=== PATIENT | female | born 1975 | race Two or more races ===

== ENCOUNTER 2023-05-30 10:42 | Emergency (ER) | payer MEDICAID ==
[~2023-05-30] VITALS: Ht 160 cm; Wt 78.5 kg
[~2023-05-30 10:42] MED LIST: CEPH500C PO
[2023-05-30] MEDS ORDERED: ONDANSETRON ODT 4 MG TAB PO ONE (11:00)
[2023-05-30 11:08] LABS: Basophils # (auto) 0.1 10 ^3/uL (0-0.2); Basophils % (auto) 0.7 % (0.0-2.0); Eosinophils # (auto) 0.1 10 ^3/uL (0-0.8); Eosinophils % (auto) 1.4 % (0.0-7.0); Hematocrit 42.1 % (36.0-46.0); Hemoglobin 14.4 g/dL (12.2-16.2); Lymphocytes # (auto) 3.1 10 ^3/uL (0.4-5.4); Lymphocytes % (auto) 41.3 % (10.0-50.0); Mean Corpuscular Hemoglobin 31.5 pg (28.0-32.0); Mean Corpuscular Hgb Conc. 34.2 g/dL (32.0-36.0); Monocytes # (auto) 0.5 10 ^3/uL (0-1.3); Monocytes % (auto) 7.2 % (0.0-12.0); Neutrophils # (auto) 3.7 10 ^3/uL (1.6-8.6); Neutrophils % (auto) 49.4 % (37.0-80.0); Red Blood Cells 4.57 10^6/uL (4.0-5.20); Red Cell Distribution Width 13.4 % (11.8-14.3); White Blood Cell 7.5 10^3/uL (4.4-10.8)
[2023-05-30 11:20] LABS: Alanine Aminotransferase 21 U/L (7-40); Alkaline Phosphatase 38 U/L (46-116); Anion Gap 6 (5-15); Aspartate Aminotransferase 16 U/L (13-40); BUN/Creatinine Ratio 14.8 (10.0-20.0); Blood Urea Nitrogen 9 mg/dL (9-23); Calcium 8.5 mg/dL (8.7-10.4); Carbon Dioxide 26 mmol/L (20-30); Chloride 106 mmol/L (98-107); Glucose 95 mg/dL (74-106); Potassium 3.4 mmol/L (3.5-5.1); Sodium 138 mmol/L (136-145)
[2023-05-30 11:21] LABS: Albumin 4.3 g/dL (3.2-4.8); Bilirubin, Total 0.4 mg/dL (0.2-1.0); Total Protein 7.3 g/dL (5.7-8.2)
[2023-05-30 11:25] LABS: INR 0.99 (0.9-1.15); Partial Thromboplastin Time 28.1 SEC (24.5-34.5); Prothrombin Time 10.4 sec (9.3-11.8)
[2023-05-30 13:01] LABS: Urine Bacteria FEW /hpf (None Seen); Urine Blood Negative /uL (Negative); Urine Clarity Clear (Clear); Urine Color Yellow (Yellow); Urine Protein, UAD Negative (Negative); Urine Specific Gravity 1.014 (1.001-1.035); Urine Urobilinogen Normal (Negative); Urine WBC 1 /hpf (0 - 5)
[2023-05-30] MEDS ORDERED: NITR-87 PO (13:56)
[2023-05-30 14:13] VITALS: BP 121/64; PULSE 67; RESP 17; TEMP 97.4; O2SAT 97
== END 2023-05-30 14:15 | disposition home or self-care (01) ==
LOC: ER 10:42
DX: R00.2 Palpitations (principal); N39.0 Urinary tract infection, site not specified; R11.0 Nausea; R07.89 Other chest pain; Z90.710 Acquired absence of both cervix and uterus; Z79.899 Other long term (current) drug therapy
CPT/HCPCS: 36415; 71045; 80053; 81001; 83735; 83880; 84484; 85025; 85610; 85730; 93005; 99285; Q0162